=== PATIENT | female | born 1965 | race Caucasian/White ===

== ENCOUNTER 2019-02-22 18:52 | Emergency (ER) | payer BC ==
[~2019-02-22] VITALS: Ht 160 cm; Wt 118.2 kg
[~2019-02-22 18:52] MED LIST: OMEP20TA5 PO; ONDA4TAB6 PO
[2019-02-22 18:55] VITALS: BP 142/89
== END 2019-02-22 20:41 | disposition home or self-care (01) ==
LOC: ER 18:53
DX: S92.422A Displaced fracture of distal phalanx of left great toe, initial encounter for closed fracture (principal); G43.909 Migraine, unspecified, not intractable, without status migrainosus; Z90.49 Acquired absence of other specified parts of digestive tract; Z98.890 Other specified postprocedural states; Z88.5 Allergy status to narcotic agent; Z79.899 Other long term (current) drug therapy; W22.8XXA Striking against or struck by other objects, initial encounter; Y93.89 Activity, other specified; Y92.814 Boat as the place of occurrence of the external cause; Y99.8 Other external cause status
CPT/HCPCS: 73630; 99283

== ENCOUNTER 2019-03-01 13:07 | Emergency (ER) | payer BC ==
[~2019-03-01] VITALS: Ht 160 cm; Wt 160.0 kg
[2019-03-01 13:13] VITALS: BP 170/100
[2019-03-01] MEDS ORDERED: CefTRIAXone/D5W-Rocephin 1gm 50 ML IV ONE (14:30)
[2019-03-01] MEDS ORDERED: HYDROcodone/acetaminophen 10/325mg tab PO ONE (14:30)
[2019-03-01] MEDS ORDERED: OXYC-145 PO (15:50)
[2019-03-01] MEDS ORDERED: CEPH500C5 PO (15:50)
[2019-03-01] MEDS ORDERED: gentamicin 0.1% topical ointment 15gm TP SCH (15:55)
== END 2019-03-01 17:02 | disposition home or self-care (01) ==
LOC: ER 13:08
DX: S92.405D Nondisplaced unspecified fracture of left great toe, subsequent encounter for fracture with routine healing (principal); L03.032 Cellulitis of left toe; Z98.890 Other specified postprocedural states; Z90.49 Acquired absence of other specified parts of digestive tract; Z88.5 Allergy status to narcotic agent; Z79.2 Long term (current) use of antibiotics; Z79.899 Other long term (current) drug therapy; X58.XXXD Exposure to other specified factors, subsequent encounter
CPT/HCPCS: 73630; 96365; 99283; J0696

== ENCOUNTER 2021-04-26 17:02 | Emergency (ER) | payer BC ==
[~2021-04-26] VITALS: Ht 160 cm; Wt 134.5 kg
[~2021-04-26 17:02] MED LIST changes: +OXYC-145 PO
[2021-04-26] MEDS ORDERED: HYDROcodone/acetaminophen 10/325mg tab PO ONE (17:20)
[2021-04-26] MEDS ORDERED: bacitracin 15gm ointment TP ONE (18:50)
[2021-04-26] MEDS ORDERED: HYDR-3965 PO (18:52)
[2021-04-26 19:54] VITALS: BP 141/69
== END 2021-04-26 19:56 | disposition home or self-care (01) ==
LOC: ER 17:03
DX: S62.664A Nondisplaced fracture of distal phalanx of right ring finger, initial encounter for closed fracture (principal); G43.909 Migraine, unspecified, not intractable, without status migrainosus; Z90.49 Acquired absence of other specified parts of digestive tract; Z98.890 Other specified postprocedural states; Z72.89 Other problems related to lifestyle; Z88.5 Allergy status to narcotic agent; Z79.899 Other long term (current) drug therapy; V87.7XXA Person injured in collision between other specified motor vehicles (traffic), initial encounter; Y93.89 Activity, other specified; Y92.488 Other paved roadways as the place of occurrence of the external cause; Y99.8 Other external cause status
CPT/HCPCS: 29130; 73080; 73110; 73130; 99284

== ENCOUNTER 2024-02-02 14:26 | Emergency (ER) | payer BC ==
[~2024-02-02] VITALS: Ht 160 cm; Wt 131.8 kg
[~2024-02-02 14:26] MED LIST changes: +OMEP20TA43 PO; -OMEP20TA5 PO
[2024-02-02 14:41] VITALS: TEMP 98
[2024-02-02 15:19] LABS: BASOPHILS % (AUTO) 0 % (0-1); EOSINOPHILS % (AUTO) 0 % (0-6); HEMATOCRIT 40.9 % (35.0-45.0); HEMOGLOBIN 13.7 g/dl (12.0-16.0); LYMPHOCYTES # (AUTO) 0.3 X10'3 (1.1-4.8); LYMPHOCYTES % (AUTO) 4.4 % (21-51); MEAN CORPUSCULAR HEMOGLOBIN 29.2 PG (27.0-31.0); MEAN CORPUSCULAR HGB CONC 33.5 g/dL (33.0-36.5); MEAN PLATELET VOLUME 8.1 FL (7.4-10.4); MONOCYTES # (AUTO) 0.4 X10'3 (0-0.9); MONOCYTES % (AUTO) 4.6 % (2-12); PLATELET COUNT 260 X10'3 (140-440); WHITE BLOOD COUNT 7.7 X10'3 (4.5-11.0)
[2024-02-02 15:38] LABS: ALANINE AMINOTRANSFERASE 33 U/L (12-78); ALBUMIN 3.4 G/DL (3.4-5.0); ALBUMIN/GLOBULIN RATIO 0.9 (1.1-1.5); ALKALINE PHOSPHATASE 93 IU/L (46-116); ANION GAP 8 (8-16); ASPARTATE AMINO TRANSFERASE 29 U/L (10-37); BILIRUBIN,DIRECT 0.4 MG/DL (0-0.3); BILIRUBIN,TOTAL 1.9 MG/DL (0.1-1.0); BLOOD UREA NITROGEN 13 MG/DL (7-18); BUN/CREATININE RATIO 14.8 (10.0-20.0); CALCIUM 8.1 MG/DL (8.5-10.1); CHLORIDE 104 MMOL/L (99-107); CREATININE 0.88 MG/DL (0.40-0.90); GLUCOSE 155 MG/DL (70-104); LIPASE 18 U/L (16-77); SODIUM 140 MMOL/L (135-145); TOTAL CARBON DIOXIDE 27.8 MMOL/L (24-32); eCRCL 58 ML/MIN; eGFR 66 ML/MIN
[2024-02-02] MEDS: diphenhydrAMINE 50 mg/ml inj IV ONE (15:39)
[2024-02-02] MEDS: normal saline 1000ml 1,000 ML IV ONE (15:49)
[2024-02-02] MEDS: metoclopramide 5 mg/ml inj IV ONE (15:49)
[2024-02-02] MEDS: potassium bicarbonate/cit acid 25mEq tablet.effervescent PO SCH (17:15)
[2024-02-02] MEDS ORDERED: HYDR-3973 PO (17:43)
[2024-02-02] MEDS ORDERED: ONDA-245 PO (17:43)
[2024-02-02] MEDS: ondansetron/PF 4mg/2ml inj IV ONE (17:56)
[2024-02-02 18:09] VITALS: BP 140/79; PULSE 92; RESP 19; O2SAT 97
== END 2024-02-02 18:13 | disposition home or self-care (01) ==
LOC: ER 14:26
DX: K29.00 Acute gastritis without bleeding (principal); G43.909 Migraine, unspecified, not intractable, without status migrainosus; Z88.5 Allergy status to narcotic agent; Z90.49 Acquired absence of other specified parts of digestive tract
CPT/HCPCS: 36415; 74176; 80048; 80076; 83690; 85025; 96361; 96374; 96375; 99285; J2405; J2765; J7030